=== PATIENT | male | born 1970 | race Caucasian/White ===

== ENCOUNTER 2017-04-16 23:55 | Emergency (ER) | payer MEDICAID ==
[~2017-04-16] VITALS: Ht 182.9 cm; Wt 99.8 kg
[2017-04-17 00:01] VITALS: BP 138/87
--- NOTE | 2017-04-17 01:36 | NUR ---
PT TAKEN TO BED 6
--- NOTE | 2017-04-17 02:00 | NUR ---
47Y/M PT. PRESNTS TO ED WITH C/O MOUTH PAIN. DENIES MEDICAL HX. AAO X4, AMBULATORY WITH STEDAY GAIT. NO S/SX OF DISTRESS AT THIS TIME. ER MD MADE AWARE OF PT. STATUS.
--- NOTE | 2017-04-17 02:12 | NUR ---
Dr. Hickman evaluating patient at bedside.
[2017-04-17] MEDS ORDERED: ceFAZolin 1,000 MG VIAL IM ONE (02:20)
--- NOTE | 2017-04-17 03:00 | NUR ---
Patient discharged with v/s stable. Written and verbal after care instructions given and explained. Patient alert, oriented and verbalized understanding of instructions. Ambulatory with steady gait. All questions addressed prior to discharge. ID band removed. Patient advised to follow up with PMD. Rx of AUGMENTIN 500 MG given. Patient educated on indication of medication including possible reaction and side effects. Opportunity to ask questions provided and answered.
[2017-04-17 03:06] VITALS: BP 130/80
== END 2017-04-17 03:00 | disposition home or self-care (01) ==
LOC: MED 23:55
DX: K05.30 Chronic periodontitis, unspecified (principal); F17.200 Nicotine dependence, unspecified, uncomplicated; Z86.14 Personal history of Methicillin resistant Staphylococcus aureus infection
CPT/HCPCS: 64400; 96372; 99284; J0690